=== PATIENT | female | born 1980 | race Caucasian/White ===

== ENCOUNTER 2023-12-28 17:51 | Emergency (ER) | payer MEDICAID ==
[~2023-12-28] VITALS: Ht 172.7 cm; Wt 138.0 kg
[2023-12-28 17:53] VITALS: TEMP 98; O2SAT 98
[2023-12-28] MEDS ORDERED: FLUO20DR3 EACH EAR (18:22)
[2023-12-28] MEDS ORDERED: HYDR-4233 TP (18:22)
[2023-12-28] MEDS ORDERED: DIPH-1207 MT (18:22)
[2023-12-28] MEDS ORDERED: [UNRECOGNIZED DRUG - OTHER] TP (18:22)
[2023-12-28 18:46] VITALS: BP 158/88; PULSE 96; RESP 20
== END 2023-12-28 18:47 | disposition home or self-care (01) ==
LOC: ER 17:51
DX: L40.9 Psoriasis, unspecified (principal); I10 Essential (primary) hypertension; Z98.890 Other specified postprocedural states; Z90.49 Acquired absence of other specified parts of digestive tract
CPT/HCPCS: 99281; 99283